=== PATIENT | female | born 1935 | race African-American/Black ===

== ENCOUNTER 2019-05-09 14:20 | Inpatient (IN) | payer OTHER ==
[~2019-05-09] VITALS: Ht 175.3 cm; Wt 94.1 kg
[~2019-05-09 14:20] MED LIST: AMLO5TAB15 PO; ASPI-498 OR; FURO40TA4 PO; HYDR50TA15 PO; LEVO250T69 PO; POTA10TA51 PO; SIMV-13 PO; levoFLOXacin 500MG 100 ML IV ONE
[2019-05-09] MEDS ORDERED: SODIUM CHLORIDE 0.9% 1,000 ML IV ONE (14:43)
[2019-05-09 15:13] LABS: Hematocrit 46.4 % (36.0-46.0); Hemoglobin 15.3 g/dL (12.2-16.2); Mean Corpuscular Hemoglobin 30.5 pg (28.0-32.0); Mean Corpuscular Volume 92.5 fL (80.0-100.0); Platelet Count (auto) 179 10^3/uL (140-450); Red Blood Cells 5.01 10^6/uL (4.0-5.20); Red Cell Distribution Width 18.1 % (11.8-14.3); White Blood Cell 11.1 10^3/uL (4.4-10.8)
[2019-05-09 15:16] LABS: Basophils % (manual) 0 (0.0-2.0); Blast Cells 0; Lymphocytes % (manual) 0 (10.0-50.0); Metamyelocytes % 0; Myelocytes % 0; Promyelocytes % 0; Reactive Lymphocytes 0
[2019-05-09 15:32] LABS: Albumin 2.7 g/dL (3.4-5.0); Anion Gap 6 (5-15); Blood Urea Nitrogen 51 mg/dL (7-18); Calcium 9.5 mg/dL (8.5-10.1); Carbon Dioxide 26 mmol/L (21-32); Chloride 107 mmol/L (98-107); Glucose 115 mg/dL (74-106); Potassium 5.2 mmol/L (3.5-5.1); Sodium 139 mmol/L (136-145)
[2019-05-09 15:38] LABS: Alanine Aminotransferase 66 U/L (13-56); Alkaline Phosphatase 164 U/L (45-117); Aspartate Aminotransferase 71 U/L (15-37); BUN/Creatinine Ratio 25.1; Bilirubin, Total 0.2 mg/dL (0.2-1.0); GFR African American 30 mL/min; GFR Non-African American 25 mL/min; Total Protein 7.4 g/dL (6.4-8.2)
[2019-05-09 15:40] LABS: Band Neutrophils % (manual) 12; Eosinophils % (manual) 1 (0-7); Monocytes % (manual) 7 (0-12)
[2019-05-09] MEDS ORDERED: predniSONE 20 MG TAB PO ONE (16:30)
[2019-05-09] MEDS ORDERED: SODIUM ZIRCONIUM CYCL 10 GM PAK PO ONE (18:45)
[2019-05-09] MEDS ORDERED: ALBUTEROL SULF 2.5 MG/0.5ML(0.5%) NEB SOLN NEB ONE (18:45)
[2019-05-09] MEDS ORDERED: CALCIUM GLUC 4.65meq/50ml D5AE 50 ML IV ONE (18:45)
[2019-05-09] MEDS ORDERED: FUROSEMIDE 20 MG/2 ML VIAL IV ONE (18:45)
[2019-05-09] MEDS ORDERED: SODIUM BICARBONATE 8.4% INJ 50ML SYRINGE IV ONE (18:45)
[2019-05-09] MEDS ORDERED: HYDROcodone-ACET 10/325MG TAB PO ONE (21:00)
[2019-05-09] MEDS ORDERED: ONDANSETRON HCL 4 MG/2 ML VIAL IV PRN (21:45)
[2019-05-09] MEDS ORDERED: ACETAMINOPHEN 325 MG TAB PO PRN (21:45)
[2019-05-09] MEDS ORDERED: DOCUSATE SOD 100 MG CAP PO PRN (21:45)
[2019-05-09] MEDS ORDERED: HYDROcodone-ACET 5/325MG TAB PO PRN (21:45)
--- NOTE | 2019-05-09 23:30 | NUR ---
Telemetry admit from ER MICHAEL ANDERSON admitted to Telemetry unit. Patient oriented to Bee Cooper, primary RN, unit, room, bed, and unit policies regarding patient care and visiting hours. Patient now on continuous telemetry monitoring, tele box #[id number] and telemetry reading on arrival to unit is sinus rhythm. Patient weighed by bed scale and encouraged to call if they need something. All questions and concerns addressed, patient verbalized understanding.
[2019-05-10] VITALS (9 sets, daily range): BP systolic 102–153; BP diastolic 52–70
[2019-05-10] MEDS ORDERED: HYDR-4296 PO (00:31)
--- NOTE | 2019-05-10 01:15 | NUR ---
PATIENT WITH LOW TEMP OF 93.3 . HOSPITALIST MADE AWARE. WILL DO WARMING MEASURES AT THIS TIME. WILL CONTINUE TO MONITOR
--- NOTE | 2019-05-10 02:31 | NUR ---
TEMP IS NOW AT 94.0. WILL CONTINUE TO MONITOR.
--- NOTE | 2019-05-10 04:54 | NUR ---
PATIENT STILL WITH LOW TEMP, NEW WARMING BLANKET APPLIED WITH HEATING PADS. WILL CONTINUE TO MONITOR. HOSPITALIST PAGED. WILL CONTINUE TO MONITOR
--- NOTE | 2019-05-10 06:01 | NUR ---
RECTAL TEMP TEMPERATURE IS 95.6, NEW WARMING BLANKET AND HEATING PADS IN PLACE. WILL CONTINUE TO MONITOR
--- NOTE | 2019-05-10 07:30 | NUR ---
Opening Shift Note Assumed care of patient, awake and alert. No S/S of distress/SOB or pain. Instructed on POC and to call for assist PRN, will continue to monitor for changes Q1hr and PRN.
[2019-05-10 08:17] LABS: Potassium 5.2 mmol/L (3.5-5.1)
[2019-05-10 08:25] LABS: BUN/Creatinine Ratio 25.8; Calcium 8.9 mg/dL (8.5-10.1)
--- NOTE | 2019-05-10 10:30 | NUR ---
WOUND CARE NOTE: IN TO SEE PATIENT AT THIS TIME PER WOUND CARE CONSULT REQUEST. PATIENT ADMITTED TO [facility] WITH DIAGNOSIS OF GENERAL WEAKNESS. SHE IS AWAKE, ALERT, CONFUSED- ORIENTED X 1. SHE HAS CURRENT BEVERLY SCORE OF 13. SHE IS WEAK, UNABLE TO ASSIST MUCH WITH HER TURNING/REPOSITIONING AT THIS TIME- ASSESSED AT [facility] FOR HER ADL'S. PATIENT IS NOTED TO BE INCONTINENT OF STOOL AT THIS TIME. PERICARE GIVEN. SHE IS NOTED TO HAVE MASD TO MEDIAL INTRAGLUTEAL SACRUM/BUTTOCKS. INTRAGLUTEAL FOLD HAS A 2 X 0.2 CM PARTIAL THICKNESS FISSURE NOTED. WOUND PHOTOGRAPHED AT THIS TIME. APPLIED ZGUARD, OPTIFOAM GENTLE SACRAL DRESSING APPLIED. NO OTHER SKIN INTEGRITY ISSUES SEEN AT THIS TIME. RECOMMEND: FREQUENT TURN SCHEDULE Q2 HOURS, PRN CONDITION PERMITS, WITH PRESSURE REDISTRIBUTION USING PILLOWS/WEDGES, BID/PRN APPLICATION ZGUARD TO IGF FISSURE, MASD SKIN OF INTRAGLUTEAL SKIN, SKIN/WOUND CARE PLAN, DIETARY CONSULT, CONTINUED MONITORING BY WOUND CARE TEAM. Addendum: 05/10/19 at 1555 by Hoa Isabel RN Amended: Links added.
[2019-05-10] MEDS ORDERED: hydrALAZINE HCL 25 MG TAB PO ONE (14:15)
[2019-05-10] MEDS ORDERED: ASPirin-EC 81 mg tab PO ONE (14:15)
--- NOTE | 2019-05-10 16:30 | NUR ---
Naidu catheter insertion Patient assessed and determined to be in need of naidu catheter. Order obtained from Dr. Shaikh HOLLAND. Patient educated on catheter and reason for insertion. All questions answered. Naidu catheter 16 guage Chilean inserted with clean sterile technique. Patient tolerated well.
[2019-05-10 16:52] LABS: Urine Bacteria NONE SEEN /hpf (None Seen); Urine Blood Negative /uL (Negative); Urine Hyaline Cast FEW /lpf (0 - 2); Urine Specific Gravity 1.015 (1.001-1.035); Urine WBC 1 /hpf (0 - 5)
[2019-05-10] MEDS: hydrALAZINE HCL 25 MG TAB PO SCH (22:35)
[2019-05-10] MEDS: ATORVASTATIN 20 MG TAB PO SCH (22:36)
[2019-05-10] MEDS: levoFLOXacin 250MG 50 ML IV SCH (23:26)
[2019-05-11] MEDS: hydrALAZINE HCL 25 MG TAB PO SCH ×3 (05:47→22:57)
[2019-05-11 05:48] VITALS: BP 149/65
[2019-05-11 06:43] LABS: Hemoglobin 14.9 g/dL (12.2-16.2); Mean Corpuscular Hemoglobin 31.3 pg (28.0-32.0); Mean Corpuscular Volume 92.1 fL (80.0-100.0); Platelet Count (auto) 185 10^3/uL (140-450); Red Blood Cells 4.78 10^6/uL (4.0-5.20); Red Cell Distribution Width 17.8 % (11.8-14.3); White Blood Cell 8.8 10^3/uL (4.4-10.8)
[2019-05-11 06:56] LABS: Potassium 4.4 mmol/L (3.5-5.1)
[2019-05-11 07:04] LABS: Albumin 2.5 g/dL (3.4-5.0); BUN/Creatinine Ratio 23.8; Bilirubin, Total 0.3 mg/dL (0.2-1.0); Calcium 9.1 mg/dL (8.5-10.1); Magnesium 3.8 mg/dL (1.6-2.6); Total Protein 7.2 g/dL (6.4-8.2)
[2019-05-11 07:14] LABS: Basophils % (manual) 0 (0.0-2.0); Blast Cells 0; Eosinophils % (manual) 0 (0-7); Metamyelocytes % 0; Myelocytes % 0; Promyelocytes % 0; Reactive Lymphocytes 0
[2019-05-11 08:00] VITALS: BP 134/56
[2019-05-11 08:13] LABS: Band Neutrophils % (manual) 4; Lymphocytes % (manual) 14 (10.0-50.0); Monocytes % (manual) 10 (0-12)
[2019-05-11 09:00] VITALS: BP 134/56
[2019-05-11] MEDS: ASPirin-EC 81 mg tab PO SCH (09:41)
[2019-05-11] MEDS: PANTOPRAZOLE 40 MG TAB PO SCH (09:41)
[2019-05-11] MEDS: ENOXAPARIN SOD 40 MG/0.4 ML SYRINGE SC SCH (09:41)
[2019-05-11] MEDS ORDERED: LORazepam 2MG/ML-1ML VIAL IV ONE (12:15)
[2019-05-11 13:00] VITALS: BP 159/74
[2019-05-11] MEDS: SODIUM CHLORIDE 0.9% 1,000 ML IV SCH (14:50)
--- NOTE | 2019-05-11 16:00 | NUR ---
obtained orders from Dr. Amaya concerning the patient hematuria.
[2019-05-11 17:00] VITALS: BP 116/78
[2019-05-11 20:12] LABS: Urine Bacteria MOD /hpf (None Seen); Urine Blood 3+ /uL (Negative); Urine Mucus FEW (None Seen); Urine WBC 73 /hpf (0 - 5)
[2019-05-11 20:24] LABS: Alcohol, Urine < 3.0 mg/dL (0-5); Amphetamine Screen, Urine NEGATIVE (NEGATIVE); Barbiturate Scree,Urine NEGATIVE (NEGATIVE); Benzodiazephine Screen, Urine NEGATIVE (NEGATIVE); Cannabinoid Screen, Urine NEGATIVE (NEGATIVE); Cocaine Screen, Urine NEGATIVE (NEGATIVE); Opiate Scree,Urine POSITIVE (NEGATIVE); Phencyclidine Screen, Urine NEGATIVE (NEGATIVE)
[2019-05-11 20:29] LABS: Creatinine, Urine 144 mg/dL (30.0-125.0); Protein, Urine 183.7 mg/dL (0.0-11.9)
[2019-05-11 22:00] VITALS: BP 130/63
--- NOTE | 2019-05-11 22:00 | NUR ---
TEMPERATURE PATIENT WITH TEMP OF 93.5 AXILLARY. TOOK RECTAL TEMP WHICH IS 91.[address] WILL CONTINUE TO MONITOR.
[2019-05-11] MEDS: ATORVASTATIN 20 MG TAB PO SCH (22:57)
--- NOTE | 2019-05-11 23:28 | NUR ---
CARISSA HUGGER APPLIED TO PATIENT PER ORDERS
[2019-05-11] MEDS: levoFLOXacin 250MG 50 ML IV SCH (23:41)
--- NOTE | 2019-05-11 23:52 | NUR ---
TEMPERATURE REASSESSED 93.1 ORAL TEMP. WILL KEEP CARISSA SANCHEZ ON AND CONTINUE TO MONITOR.
--- NOTE | 2019-05-12 00:38 | NUR ---
TEMPERATURE REASSESSED TEMP IS NOW 94.2. CARISSA SANCHEZ ON, WILL CONTINUE TO MONITOR
--- NOTE | 2019-05-12 02:01 | NUR ---
TEMPERATURE REASSESSED ORAL TEMP IS 94.0 CARISSA HUGGER STILL ON PATIENT, PATIENT TOLERATING WELL. WILL CONTINUE TO MONITOR
--- NOTE | 2019-05-12 03:34 | NUR ---
PATIENT AWAKE NEEDING TO USE THE BED SIDE COMMODE, WHILE GETTING UP PATIENT IS STATING "LOOK AT ALL THOSE ANTS" "THERES ROACHES TOO". AFTER REDIRECTION PATIENT GOT ON TO THE COMMODE, WHILE ON THE COMMODE, PATIENT IS STILL TALKING ABOUT "ANTS AND ROACHES" ALL AROUND. WILL CONTINUE TO MONITOR PATIENT FOR FURTHER CHANGES.
--- NOTE | 2019-05-12 03:53 | NUR ---
PATIENT HAD SM LOOSE BOWEL MOVEMENT. PATIENT BACK INTO BED, CLEANED AND APPLIED Z GUARD TO BUTTOCKS.
--- NOTE | 2019-05-12 03:56 | NUR ---
TEMPERATURE REASSESSED TOOK RECTAL TEMP, 96.3. WILL KEEP CARISSA HUGGER ON PATIENT. WILL CONTINUE TO MONITOR Q1HR
--- NOTE | 2019-05-12 05:30 | NUR ---
TEMPERATURE REASSESSED ORAL TEMP IS 97.6. WILL REMOVE CARISSA SANCHEZ AT THIS TIME AND CONTINUE TO MONITOR.
[2019-05-12] MEDS: SODIUM CHLORIDE 0.9% 1,000 ML IV SCH (05:56)
[2019-05-12 06:00] VITALS: BP 155/71
[2019-05-12] MEDS: hydrALAZINE HCL 25 MG TAB PO SCH ×3 (06:02→23:26)
[2019-05-12 06:33] LABS: BUN/Creatinine Ratio 30.1; Calcium 8.6 mg/dL (8.5-10.1); Potassium 4.2 mmol/L (3.5-5.1)
--- NOTE | 2019-05-12 07:30 | NUR ---
Opening Shift Note Assumed care of patient, awake and alert but forgetful/ confused. No S/S of distress/SOB or pain. Instructed on POC and to call for assist PRN, will continue to monitor for changes Q1hr and PRN. Patient to Radiology per w/c for CT of abdomen and pelvis.
[2019-05-12 08:00] VITALS: BP 138/62
--- NOTE | 2019-05-12 08:45 | NUR ---
Patient noted to be back in bed and had finished breakfast at this time. Notified label printer that patient had breakfast but will keep patient on NPO for CAMILO. Reminded patient that she is npo for CAMILO.
--- NOTE | 2019-05-12 09:40 | NUR ---
Arminda Conti BATCH STILL OPERATOR was in to see patient and left new orders.
[2019-05-12] MEDS: ENOXAPARIN SOD 40 MG/0.4 ML SYRINGE SC SCH (09:54)
[2019-05-12] MEDS: ASPirin-EC 81 mg tab PO SCH (09:54)
[2019-05-12] MEDS: PANTOPRAZOLE 40 MG TAB PO SCH (09:54)
[2019-05-12 10:18] LABS: Folate (Folic Acid) > 24.00 ng/mL (5.38-24)
--- NOTE | 2019-05-12 10:30 | NUR ---
EEG was done in patient's bed and patient tolerated it well.
--- NOTE | 2019-05-12 10:40 | NUR ---
EEG COMPLETED AT BEDSIDE. BLANCA SEXTON.
[2019-05-12] MEDS ORDERED: PROMETHAZINE HCL 25 MG/ML 1ML IV ONE (11:00)
--- NOTE | 2019-05-12 11:45 | NUR ---
Patient accidentally pulled out her iv when she went to the bathroom and also pulled her urine bag and same noted to be leaking. Catheter bag changed and urine output noted to be more pinkish than red at this time. Will insert new IV and will bring patient down to blood bank laboratory professional when one is inserted.
[2019-05-12 12:00] VITALS: BP 151/66
--- NOTE | 2019-05-12 12:15 | NUR ---
Patient brought down per bed to production laborer per bed for CAMILO in a stable condition.
[2019-05-12] MEDS ORDERED: MIDAZOLAM HCL 1MG/1ML-2 ML VIAL IV ONE (12:45)
[2019-05-12] MEDS ORDERED: fentaNYL CITRATE 100 MCG/2 ML VL IV ONE (12:45)
[2019-05-12] MEDS ORDERED: LIDOCAINE VISCOUS 2% 15ML UD PO ONE (12:45)
--- NOTE | 2019-05-12 14:35 | NUR ---
Patient noted to be back from laborer wharf s/p CAMILO. Patient noted to be sleeping in bed comfortably.
--- NOTE | 2019-05-12 16:00 | NUR ---
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 Dr. Hollis made aware of same.
[2019-05-12 17:00] VITALS: BP 142/67
--- NOTE | 2019-05-12 18:26 | NUR ---
Urine output noted to be clear,light yellow and no hematuria noted at this time. Patient taking diet and fluids well.
--- NOTE | 2019-05-12 19:30 | NUR ---
Opening Shift Note Assumed care of patient, awake and alert. No S/S of distress/SOB or pain. POC discussed and questions answered. bed is locked in lowest position with side rails up x2 for safety. Call light is within reach and encouraged to call for assistance PRN, will continue to monitor for changes Q1hr and PRN.
[2019-05-12 22:00] VITALS: BP 117/61
[2019-05-12] MEDS: ATORVASTATIN 20 MG TAB PO SCH (22:00)
[2019-05-13 04:41] VITALS: BP 157/65
[2019-05-13] MEDS: SODIUM CHLORIDE 0.9% 1,000 ML IV SCH ×2 (05:30→11:45)
[2019-05-13] MEDS: hydrALAZINE HCL 25 MG TAB PO SCH ×2 (06:00→15:12)
[2019-05-13 06:47] LABS: Basophils # (auto) 0 uL; Basophils % (auto) 0.3 % (0.0-2.0); Eosinophils # (auto) 0.3 uL; Eosinophils % (auto) 5.3 % (0.0-7.0); Lymphocytes # (auto) 0.9 uL; Lymphocytes % (auto) 19.8 % (10.0-50.0); Mean Corpuscular Hemoglobin 30.9 pg (28.0-32.0); Mean Corpuscular Hgb Conc. 33.3 g/dL (32.0-36.0); Mean Corpuscular Volume 92.6 fL (80.0-100.0); Monocytes # (auto) 0.7 uL; Monocytes % (auto) 15.6 % (0.0-12.0); Neutrophils # (auto) 2.8 uL; Nucleated Red Blood Cells % 0.3 %; Platelet Count (auto) 149 10^3/uL (140-450); Red Blood Cells 4.54 10^6/uL (4.0-5.20); Red Cell Distribution Width 17.8 % (11.8-14.3); White Blood Cell 4.8 10^3/uL (4.4-10.8)
[2019-05-13 07:00] LABS: Potassium 4.3 mmol/L (3.5-5.1)
[2019-05-13 07:16] LABS: Albumin 2.2 g/dL (3.4-5.0); BUN/Creatinine Ratio 28.5; Bilirubin, Total 0.2 mg/dL (0.2-1.0); Calcium 8.8 mg/dL (8.5-10.1); Total Protein 6.3 g/dL (6.4-8.2)
--- NOTE | 2019-05-13 07:38 | NUR ---
PATIENT ASLEEP, NO SIGNS OR SYMPTOMS OF SOB OR PAIN. CARE ENDORSED TO DAY SHIFT RN
--- NOTE | 2019-05-13 07:45 | NUR ---
Opening Shift Note Assumed care of patient, sleeping comfortably but was easily awakened. No S/S of distress/SOB or pain. Instructed on POC and to call for assist PRN, will continue to monitor for changes Q1hr and PRN.
[2019-05-13 08:00] VITALS: BP 146/65
[2019-05-13] MEDS: ASPirin-EC 81 mg tab PO SCH (09:40)
[2019-05-13] MEDS: PANTOPRAZOLE 40 MG TAB PO SCH (09:40)
[2019-05-13] MEDS: ENOXAPARIN SOD 40 MG/0.4 ML SYRINGE SC SCH (09:43)
[2019-05-13] MEDS ORDERED: amLODIPine BESYLATE 5 MG TAB PO SCH (10:00)
--- NOTE | 2019-05-13 10:00 | NUR ---
Shower given to patient with moderate assist. Patient ambulated to the bathroom and back to bed with standby to minimal assist.
[2019-05-13 12:00] VITALS: BP 128/64
--- NOTE | 2019-05-13 14:40 | NUR ---
assessment Patient is a 83 year old female who is answering most questions appropriately. patient has history of dementia. Per patient prior to admission patient lived home with her daughter Gisell Waddell and functioned with assistance. Patient has a fww for home use. Per patient she will return home with her daughter on discharge. I have left a message for patients daughter Gisell to return my call. Waiting community relations officer back now. I informed patient she has a right to speak to a social service assistant regarding all care. I informed patient she has a right to participate in any and all discharge planning. Patient does not have a POA and advanced directive. I have offered patient information on POA and advanced directives. I informed the patient the advantages and benefits of having an Advanced Directive. Patient verbalized understanding and agreed to discharge plan. Addendum: 05/13/19 at 1443 by Alice LUKE Amended: Links added.
--- NOTE | 2019-05-13 14:51 | NUR ---
Dr. Macario was in to see patient and MD left discharge order and sent her e prescriptions to patient's pharmacy. Patient made aware of same.
[2019-05-13] MEDS ORDERED: PANT40T PO (15:02)
--- NOTE | 2019-05-13 15:15 | NUR ---
Naidu catheter dc'd Order to discontinue naidu catheter. Naidu dc'd with clean technique following deflation of balloon. Patient tolerated well with no complaints of pain. Continue care.
[2019-05-13 16:34] VITALS: BP 132/63
[2019-05-13 17:00] VITALS: BP 132/63
--- NOTE | 2019-05-13 19:15 | NUR ---
received report from BLANCA Douglas, pt is ready for discharge waiting for daughter, IV, naidu catheter discontinued, pt on chair dressed up ready to go home.
--- NOTE | 2019-05-13 19:28 | NUR ---
Discharge instructions given as ordered. Encourage to follow up with Dr. Wren on 05/21 as scheduled. All questions and concerns addressed. Patient verbalized understanding. Medication reconciliation form completed and copy given to patient. Patient taken to vehicle via wheelchair with all personal belongings, accompanied by staff and family member. No distress noted at time of departure.
--- NOTE | 2019-05-14 11:18 | NUR ---
Social Service consult regarding Home Health. Packet sent to Yanet at [facility] at ([phone], phone [phone]). Awaiting confirmation from [facility].
--- NOTE | 2019-05-14 11:46 | NUR ---
Dian from [facility] called and verified that they are not contracted with [facility]. Let Regina know.
--- NOTE | 2019-05-14 12:05 | NUR ---
Received a call from Yanet from [facility] and was advised that she created an auth for [facility] due to insurance. Auth is [id number]. Tamie [facility] rep Pearson was advised that patient has discharged; she advised they have been trying to reach patient, and has left messages.
== END 2019-05-13 19:28 | disposition home health service (06) | DRG 391 ==
LOC: EDBD 14:20 → ER 14:28 → TELE 14:29 → TELE-WESTW 23:27
PROVIDERS: ADMIT Hospitalist; ATTEND Hospitalist
PROC: B246ZZ4 Ultrasonography of Right and Left Heart, Transesophageal (ICD-10-PCS; principal; 2019-05-12)
DX: R19.7 Diarrhea, unspecified (principal); N17.0 Acute kidney failure with tubular necrosis; K86.2 Cyst of pancreas; I13.0 Hypertensive heart and chronic kidney disease with heart failure and stage 1 through stage 4 chronic kidney disease, or unspecified chronic kidney disease; R65.10 Systemic inflammatory response syndrome (SIRS) of non-infectious origin without acute organ dysfunction; I50.32 Chronic diastolic (congestive) heart failure; R80.9 Proteinuria, unspecified; G51.0 Bell's palsy; E87.5 Hyperkalemia; R74.8 Abnormal levels of other serum enzymes; I25.10 Atherosclerotic heart disease of native coronary artery without angina pectoris; E78.5 Hyperlipidemia, unspecified; N28.1 Cyst of kidney, acquired; N20.0 Calculus of kidney; N18.3 Chronic kidney disease, stage 3 (moderate); F03.90 Unspecified dementia, unspecified severity, without behavioral disturbance, psychotic disturbance, mood disturbance, and anxiety; I25.2 Old myocardial infarction; Z86.73 Personal history of transient ischemic attack (TIA), and cerebral infarction without residual deficits; Z79.899 Other long term (current) drug therapy; Z82.49 Family history of ischemic heart disease and other diseases of the circulatory system; Z90.49 Acquired absence of other specified parts of digestive tract
CPT/HCPCS: 36415; 70450; 71045; 74176; 80048; 80053; 80061; 80307; 81001; 82378; 82570; 82607; 82746; 83036; 83735; 83880; 84156; 84443; 84484; 85007; 85025; 85027; 86300; 86301; 86304; 87086; 93005; 93306; 93312; 93886; 94640; 95819; 96365; 96375; 97110; 97116; 97163; 97530; G0378; J0610; J2250